=== PATIENT | male | born 1995 | race Two or more races ===

== ENCOUNTER 2016-09-10 16:55 | Emergency (ER) | payer BC ==
[2016-09-10 17:15] VITALS: BP 106/53; PULSE 62; RESP 18; TEMP 98.4; O2SAT 95
--- NOTE | 2016-09-10 17:42 | EDPHY ---
H & P Time Seen by Provider: 09/10/16 17:27 HPI/ROS: CHIEF COMPLAINT: Pain and swelling in the penis HISTORY OF PRESENT ILLNESS: Symptoms started yesterday morning continued today. At least for 36 hours. Swelling of the shaft of the penis without urinary symptoms or ulcers or fever or chills. No testicular symptoms. Denies erection or trauma. REVIEW OF SYSTEMS: No difficulty urinating. PAST MEDICAL HISTORY: Negative, no diabetes. Social history: No sexual trauma. General Appearance: Alert and conversant, cooperative. Normal testicles without swelling or tenderness. Vertical lie. Normal glans. Shaft of the penis is soft to palpation but is swollen and has 2 firm nodules in the mid shaft under hair follicle. No lymphangitis. No crepitus. Emergency Department course/MDM: Patient is supposed to leave town at 10:00 a.m. tomorrow to go to [place] for a birthday democrat. He is warned of the risks of failing to follow up with Urology including but not limited to permanent damage or loss of his penis, sepsis, worsening infection, sexual dysfunction. He is warned that follow-up with Urology tomorrow is mandatory. Most likely infection of the soft tissue and skin of the glans of the penis. He does not look septic or toxic. His penis is still flexible, no priapism. Not erect. Oral Bactrim and Keflex. Urine dip negative for glucose. Discussed case in detail with Dr. Dominguez at 9:08 p.m.,will see in f/u 24 hours if patient contacts him tomorrow. Smoking Status: Former smoker Constitutional: Initial Vital Signs Temperature (C) 36.9 C 09/10/16 17:11 Heart Rate 62 09/10/16 17:11 Respiratory Rate 18 09/10/16 17:11 Blood Pressure 106/53 L 09/10/16 17:11 O2 Sat (%) 95 09/10/16 17:11 O2 Delivery Mode Room Air Allergies/Adverse Reactions: No Known Allergies Allergy (Unverified 03/14/16 22:49) Home Medications: Medication Instructions Recorded Cephalexin [Keflex] 500 mg PO QID #40 cap 09/10/16 Sulfamethox/Tmp 800/160 mg 1 tab PO BID@1000,2200 #20 tab 09/10/16 [Bactrim Ds] MDM/Departure - MDM Medications Given: Discontinued Medications Cephalexin HCl (Keflex) 500 mg PO EDNOW ONE PRN Reason: Protocol Stop: 09/10/16 17:44 Last Admin: 09/10/16 17:46 Dose: 500 mg Trimethoprim/Sulfamethoxazole (Bactrim Ds) 1 ea PO EDNOW ONE PRN Reason: Protocol Stop: 09/10/16 17:44 Last Admin: 09/10/16 17:46 Dose: 1 ea - Depart Disposition: Home, Routine, Self-Care Clinical Impression: Cellulitis of shaft of penis Condition: Good Instructions: Cellulitis (ED) Stand Alone Forms: Airline Excuse Prescriptions: Cephalexin [Keflex] 500 mg PO QID #40 cap Sulfamethox/Tmp 800/160 mg [Bactrim Ds] 1 tab PO BID@1000,2200 #20 tab Referrals: Elvin Dominguez MD [Medical Doctor] - 1 day without fail (See this doctor or urologist at [facility] in [place] tomorrow morning without fail.)
[2016-09-10] MEDS ORDERED: CEPHALEXIN 500 MG CAP PO ONE (17:43)
[2016-09-10] MEDS ORDERED: SULFAMETHOX/TMP 800/160 MG 1 TAB PO ONE (17:43)
== END 2016-09-10 18:10 | disposition home or self-care (01) ==
DX: N48.22 Cellulitis of corpus cavernosum and penis (principal); Z87.891 Personal history of nicotine dependence

== ENCOUNTER 2018-07-03 00:24 | Inpatient (IN) | payer BC ==
[~2018-07-03 00:24] MED LIST: NS 1,000 ML IV ONE
--- NOTE | 2018-07-03 00:33 | EDPHY ---
H & P Time Seen by Provider: 07/03/18 00:33 HPI/ROS: HPI CHIEF COMPLAINT: Self-inflicted left wrist laceration. Full-trauma activation. HISTORY OF PRESENT ILLNESS: 22-year-old male, self-inflicted laceration left wrist. Palmar side. He self-inflicted this with a razor blade. He arrives to the emergency room by EMS tourniquet in place placed by EMS at 12: 05 a.m.. I did immediately see him we took down the tourniquet and examined his left wrist and hand. He has a deep self-inflicted wound to the left hand. It goes through all the left wrist tendons, and most likely clips his left ulnar artery. He does have sensation. He has good cap refill. He has decreased function of his left digits with flexion. He cannot fully flex his left 5th digit, 4th, 3rd, 2nd. Does have a good radial pulse. This was activated as a full trauma alert once arriving to the emergency room due to the limb injury, arterial bleeding. Upon arrival to the emergency room the patient had an IV established, blood sent , IV Ancef given, tetanus shot updated. Past Medical History: Denies medical history Past Surgical History: Denies surgical history Social History: Alcohol this evening. Family History: Noncontributory ROS REVIEW OF SYSTEMS: 10 Systems were reviewed and negative with the exception of the elements mentioned in the history of present illness. Exam Constitutional triage nursing summary reviewed, vital signs reviewed, awake/ alert. Eyes normal conjunctivae and sclera, EOMI, PERRLA. HENT normal inspection, atraumatic, moist mucus membranes, no epistaxis, neck supple/ no meningismus, no raccoon eyes. Respiratory clear to auscultation bilaterally, normal breath sounds, no respiratory distress, no wheezing. Cardiovascular rate normal, regular rhythm, no murmur, no edema, distal pulses normal. Gastrointestinal soft, non-tender, no rebound, no guarding, normal bowel sounds, no distension, no pulsatile mass. Genitourinary no CVA tenderness. Musculoskeletal left upper extremity: Patient has good radial pulse. Good cap refill to all digits. He has obvious large deep left wrist laceration palmar side. It it goes through all of his flexor tendons. And clips his ulnar artery. He does have weak flexion of his digits. no midline vertebral tenderness, full range of motion, no calf swelling, no tenderness of extremities, no meningismus, good pulses, neurovascularly intact. Skin pink, warm, & dry, no rash, skin atraumatic. Neurologic awake, alert and oriented x 3, AAOx3, moves all 4 extremities equally, motor intact, sensory intact, CN II-XII intact, normal cerebellar, normal vision, normal speech. Psychiatric normal mood/affect. Heme/Lymph/Immune no lymphadenopathy. Differential Diagnosis: Includes but is not limited to in a particular order self-inflicted laceration, soft tissue injury, tendon laceration, ulnar artery injury Medical Decision Making: Patient was activated as a full trauma alert. Dr. Calabrese saw and evaluated the patient. Dr. Conway was consulted given the patient has a limb injury hand wrist injury. Re-evaluation: Patient's tetanus shot has been updated. Patient given Ancef. X-ray performed. Blood work sent. No other injury on head to toe trauma exam. Patient placed on M1 hold due to self-inflicted deep left wrist laceration. Dr. Conway to consult take to the OR for repair. M1 hold placed by myself 1:06 a.m.. Reason for M1 hold self-inflicted deep left wrist laceration. 0117: Dr. Conway at bedside, examining. Will take to OR. Source: Patient, EMS - Medical/Surgical History Hx Asthma: No Hx Chronic Respiratory Disease: No Hx Diabetes: No Hx Cardiac Disease: No Hx Renal Disease: No Hx Cirrhosis: No Hx Alcoholism: No Hx HIV/AIDS: No Hx Splenectomy or Spleen Trauma: No Other PMH: None - Social History Smoking Status: Former smoker Constitutional: Initial Vital Signs Temperature (C) 36.9 C 07/03/18 00:29 Heart Rate 90 07/03/18 00:29 Respiratory Rate 20 07/03/18 00:29 Blood Pressure 125/71 H 07/03/18 00:29 O2 Sat (%) 100 07/03/18 00:29 O2 Delivery Mode Nasal Cannula O2 (L/minute) 4 Allergies/Adverse Reactions: No Known Allergies Allergy (Unverified 07/03/18 00:26) Home Medications: Medication Instructions Recorded Hydrocodone/APAP 5/325 [Terra Bella 1 - 2 tab PO Q4HRS PRN #14 tab 07/04/18 5/325 (*)] Medical Decision Making - Data Points Laboratory Results: Laboratory Results 07/03/18 00:45 07/03/18 00:15 Medications Given: Discontinued Medications Bupivacaine HCl (Sensorcaine 0.5% Vial) Confirm Administered Dose 30 ml .ROUTE .STK-MED ONE Stop: 07/03/18 01:41 Last Admin: 07/03/18 02:57 Dose: 30 ml Diphtheria/Tetanus/Acell Pertussis (Boostrix) 0.5 ml IM .ONCE ONE Stop: 07/03/18 00:49 Last Admin: 07/03/18 01:13 Dose: 0.5 ml Fentanyl (Sublimaze) 50 mcg IVP EDNOW ONE Stop: 07/03/18 00:59 Last Admin: 07/03/18 00:58 Dose: 50 mcg Cefazolin Sodium 3 gm/ (Dextrose) 100 mls @ 200 mls/hr IV EDNOW ONE PRN Reason: Protocol Stop: 07/03/18 01:15 Last Admin: 07/03/18 01:11 Dose: Not Given Cefazolin Sodium/Dextrose (Ancef 1 Gm (Premix)) 50 mls @ 200 mls/hr IV EDNOW ONE PRN Reason: Protocol Stop: 07/03/18 01:08 Last Admin: 07/03/18 00:58 Dose: 50 mls Sodium Chloride (Ns) 1,000 mls @ 0 mls/hr IV ONCE ONE; Wide Open PRN Reason: Protocol Stop: 07/03/18 00:11 Last Admin: 07/03/18 00:16 Dose: 1,000 mls Ondansetron HCl (Zofran) 4 mg IVP EDNOW ONE Stop: 07/03/18 00:47 Last Admin: 07/03/18 00:46 Dose: 4 mg Oxycodone/Acetaminophen (Percocet 5/325) 1 - 2 tab PO Q4HRS PRN PRN Reason: Pain, Severe Able to Take PO Stop: 07/13/18 03:37 Last Admin: 07/03/18 16:51 Dose: 2 tab Pantoprazole Sodium (Protonix) 40 mg IVP EDNOW ONE Stop: 07/03/18 00:47 Last Admin: 07/03/18 00:46 Dose: 40 mg Departure - Departure Disposition: [facility] Clinical Impression: Suicidal ideation Laceration of left wrist Qualifiers: Encounter type: initial encounter Qualified Code(s): S61.512A - Laceration without foreign body of left wrist, initial encounter
[2018-07-03] MEDS ORDERED: ONDANSETRON 4 MG/2 ML VIAL IVP ONE (00:46)
[2018-07-03] MEDS ORDERED: PANTOPRAZOLE SODIUM 40 MG VIAL IVP ONE (00:46)
[2018-07-03] MEDS ORDERED: ceFAZolin 3 GM in D5W 100 ML IV ONE (00:46)
[2018-07-03] MEDS ORDERED: TDAP ADULT 0.5 ML INJ (BOOSTRIX) IM ONE (00:48)
[2018-07-03] MEDS ORDERED: CEFAZOLIN 1 GM/DEXTROSE/50 ML BAG IV ONE (00:48)
[2018-07-03 00:57] LABS: PLATELET COUNT 224 10^3/uL (150-400)
[2018-07-03] MEDS ORDERED: fentaNYL 100 MCG/2 ML INJ ONE ×2 (00:57→03:06)
[2018-07-03] MEDS ORDERED: fentaNYL 100 MCG/2 ML INJ IVP ONE (00:58)
[2018-07-03 01:08] LABS: INR 1.03 (0.83-1.16); PROTIME(PATIENT) 13.7 SEC (12.0-15.0)
[2018-07-03] MEDS ORDERED: PROPOFOL/EMULSION 500 MG/50 ML BOTTLE IV ONE ×2 (01:35→02:01)
[2018-07-03] MEDS ORDERED: fentaNYL 250 MCG/5 ML INJ ONE (01:35)
[2018-07-03] MEDS ORDERED: BUPIVACAINE 0.5% 30 ML SDV ONE (01:40)
[2018-07-03] MEDS ORDERED: GLYCOPYRROLATE 0.2 MG/1 ML VIAL ONE ×3 (02:00→03:36)
[2018-07-03] MEDS ORDERED: KETOROLAC 30 MG/1 ML SDV ONE (02:09)
[2018-07-03] MEDS ORDERED: ROCURONIUM 50 MG/5 ML VIAL ONE (02:09)
[2018-07-03] MEDS ORDERED: DEXAMETHASONE 4 MG/ML VIAL ONE (02:09)
[2018-07-03] MEDS ORDERED: ONDANSETRON 4 MG/2 ML VIAL ONE (02:09)
--- NOTE | 2018-07-03 02:22 | PDANEPAE ---
ANE History of Present Illness Left wrist laceration exploration probable artery, tendon repair ANE Past Medical History - Cardiovascular History Hx Hypertension: No Hx Arrhythmias: No Hx Chest Pain: No Hx Coronary Artery / Peripheral Vascular Disease: No Hx CHF / Valvular Disease: No Hx Palpitations: No - Pulmonary History Hx COPD: No Hx Asthma/Reactive Airway Disease: No Hx Recent Upper Respiratory Infection: No Hx Oxygen in Use at Home: No Hx Sleep Apnea: No - Endocrine History Hx Diabetes: No Hypothyroid: No Hyperthyroid: No Obesity: no - Renal History Hx Renal Disorders: No - Liver History Hx Hepatic Disorders: No - Neurological & Psychiatric Hx Hx Neurological and Psychiatric Disorders: No - Cancer History Hx Cancer: No - Congenital Disorder History Hx Congenital Disorders: No - GI History GERD: no Hx Gastrointestinal Disorders: No - Chronic Pain History Chronic Pain: No ANE Review of Systems Review of systems is: negative Review of Systems: - Exercise capacity METS (RN): 5 METS ANE Patient History - Allergies Allergies/Adverse Reactions: No Known Allergies Allergy (Unverified 07/03/18 00:26) - Anes Hx Anes Hx: no prior problems - Smoking Hx Smoking Status: Current some day smoker Marijuana use: Yes - Alcohol Use Alcohol Use: Other - Family Anes Hx Family Anes Hx: none ANE Labs/Vital Signs - Labs Result Diagrams: 07/03/18 00:45 07/03/18 00:15 - Vital Signs Blood Pressure: 125/71 Heart Rate: 90 Respiratory Rate: 20 O2 Sat (%): 100 Height: 180.34 cm Weight: 61.235 kg ANE Physical Exam - Airway Neck exam: FROM Mallampati Score: Class 1 Mouth exam: normal dental/mouth exam - Pulmonary Pulmonary: no respiratory distress, no rales or rhonchi - Cardiovascular Cardiovascular: regular rate and rhythym, no murmur, rub, or gallop - ASA Status ASA Status: I, E ANE Anesthesia Plan Anesthesia Plan: general endotracheal anesthesia
[2018-07-03] MEDS ORDERED: NEOSTIGMINE METHYLSULFATE 5 MG/5 ML SYR ONE (03:36)
[2018-07-03] MEDS ORDERED: ONDANSETRON DISINTEGRATING 4 MG TAB PO PRN (03:38)
[2018-07-03] MEDS ORDERED: ONDANSETRON 4 MG/2 ML VIAL IVP PRN (03:38)
--- NOTE | 2018-07-03 03:38 | PDCONSULT ---
Distribution Systems Serviceperson Note: ORTHOPEDIC SURGERY CONSULT NOTE/H&P CHIEF COMPLAINT: Self-inflicted left wrist laceration. Full-trauma activation. ASSESSMENT/PLAN: Dr Conway to perform repair of left wrist tendon, nerve, and artery as soon as possible Admit with hospital service Psych consult needed Surgical consent with risks/benefits was explained to and signed by patient. HISTORY OF PRESENT ILLNESS: 22-year-old male, self-inflicted laceration left wrist. Palmar side. He self-inflicted this with a razor blade. He arrives to the emergency room by EMS tourniquet in place placed by EMS at 12: 05 a.m.. ER saw him and took down the tourniquet and examined his left wrist and hand. He has a deep self-inflicted wound to the left hand. It goes through all the left wrist tendons, and most likely clips his left ulnar artery. He has good cap refill. He has decreased function of his left digits with flexion. He cannot fully flex his left 5th digit, 4th, 3rd, 2nd. Does have a good radial pulse. This was activated as a full trauma alert once arriving to the emergency room due to the limb injury, arterial bleeding. Upon arrival to the emergency room the patient had an IV established, blood sent , IV Ancef given, tetanus shot updated. Past Medical History: Denies medical history Past Surgical History: Denies surgical history Social History: Alcohol this evening. Family History: Noncontributory ROS REVIEW OF SYSTEMS: 10 Systems were reviewed and negative with the exception of the elements mentioned in the history of present illness. Exam Constitutional triage nursing summary reviewed, vital signs reviewed, awake/ alert. Eyes normal conjunctivae and sclera, EOMI, PERRLA. HENT normal inspection, atraumatic, moist mucus membranes, no epistaxis, neck supple/ no meningismus, no raccoon eyes. Respiratory clear to auscultation bilaterally, normal breath sounds, no respiratory distress, no wheezing. Cardiovascular rate normal, regular rhythm, no murmur, no edema, distal pulses normal. Gastrointestinal soft, non-tender, no rebound, no guarding, normal bowel sounds, no distension, no pulsatile mass. Genitourinary no CVA tenderness. Musculoskeletal left upper extremity: Patient has good radial pulse. Good cap refill to all digits. He has obvious large deep left wrist laceration palmar side. It it goes through all of his flexor tendons. And clips his ulnar artery. He does have weak flexion of his digits. no midline vertebral tenderness, full range of motion, no calf swelling, no tenderness of extremities, no meningismus, good pulses, neurovascularly intact. Skin pink, warm, & dry, no rash, skin atraumatic. Neurologic awake, alert and oriented x 3, AAOx3, moves all 4 extremities equally, motor intact, sensory intact, CN II-XII intact, normal cerebellar, normal vision, normal speech. Psychiatric normal mood/affect. Heme/Lymph/Immune no lymphadenopathy. Patient seen by Chapo SHORT and Dr. Conway (Orthopedic Surgery)
[2018-07-03] MEDS ORDERED: fentaNYL 100 MCG/2 ML INJ IVP PRN (04:03)
[2018-07-03] MEDS ORDERED: NALOXONE HCL 0.4 MG/ML INJ IVP PRN (04:03)
[2018-07-03] MEDS ORDERED: HYDROCODONE/APAP 5/325 TAB PO PRN (04:03)
[2018-07-03] MEDS ORDERED: HYDROmorphONE/DILAUDID 1 MG/ML INJ IVP PRN (04:03)
--- NOTE | 2018-07-03 04:28 | POSTANESTH ---
Post Anesthetic Evaluation Cardiovascular Status: Normal, Stable Respiratory Status: Normal, Stable Level of Consciousness/Mental Status: Can Participate in Eval Pain Control: Adequate, Prn Tx Ordered Nausea/Vomiting Control: Adequate, Prn Tx Ordered Complications Possibly Related to Anesthesia: None Noted
--- NOTE | 2018-07-03 09:03 | GCON ---
TRAUMA CONSULTATION DIAGNOSIS: Transverse laceration left wrist (nondominant arm). HISTORY OF PRESENT ILLNESS: The patient states this was not a suicidal gesture , but he was just trying to "make a point." As soon as he incised the tissue with the razor blade, began bleeding profusely. He placed a towel over it and had his friends call 911. He was transported to [facility]. This was activated when he arrived. Dr. Elizabeth initially saw the patient. I came promptly to see him, but arrived I believe about 5 minutes after the patient's arrival. At that point, he is awake and alert. His airway is clear, and unencumbered. His breathing is unrestricted. Without a blood pressure cuff, without tourniquet up on his left arm, there is a least 1 small bleeder in the wrist. Before the tourniquet was reinflated, quick review of his hand shows he has good capillary refill. He has difficulty sorting out sensation in his hand. He can feel, but is not the same as normal on the palmar surface of his fingers. He extends very fingers, but has difficulty flexing them. The tourniquet is reapplied. His second IV is being sought at this point. SOCIAL HISTORY: He states he does not smoke. He has had approximately 4 drinks tonight and he has about that amount of alcohol once a weekend. ALLERGIES: He has no known drug allergies. MEDICATION: He denies taking medications beyond NyQuil or Benadryl. PAST SURGICAL HISTORY: He has had no prior surgery, except for a mixed appendicitis, which was treated with percutaneous drainage of the abscess. REVIEW OF SYSTEMS: No history of rheumatic fever, tuberculosis, hepatitis, of transfusions. Review of systems Is otherwise quite negative. PHYSICAL EXAMINATION: GENERAL: He is awake, alert, oriented. GCS is 15. He is not obviously inebriated. HEENT: His skull is normocephalic and atraumatic. There are no raccoon eyes or mora sign. He has normal dental occlusion. NECK: Supple, nontender. There are no carotid bruits. LYMPHATIC: There is no cervical, supraclavicular, axillary, or inguinal lymphadenopathy. CHEST: Stable to AP and lateral compression. LUNGS: Clear to auscultation. CARDIAC: Shows S1, S2 to be normal, with normal split of S2 without murmurs, rubs, or gallops. ABDOMEN: Soft, nontender. MUSCULOSKELETAL: Pelvis stable to AP and lateral compression. The lower extremities in the right upper extremity are unremarkable. Left upper extremity has a transverse incision approximately a fingerbreadth and a half proximal to the wrist crease. There were several cut tendons seen in the wound. Dr. Conway from Hand surgery has been consulted. Patient received a g of Ancef, as well as a tetanus shot. He received Zofran. He has received Protonix. IMPRESSION: Self-inflicted wound. Rational behind self-inflicted wound remains unclear. Laboratories are pending. I expect he will be taken to the operating room for tendon repair. I suspect there has been some neural injury and attempt may be made to repair that as well. /[id number]/MODL MTDD
[2018-07-03] MEDS: OXYCODONE/APAP 5/325 TAB PO PRN ×2 (09:04→16:51)
--- NOTE | 2018-07-03 09:34 | ASMTCMCOM ---
CM Note CM Note Notes: 22yo male admitted for Self inflicted- L Wrist laceration. He is a student and his mother resides in [place]. Patient to have tendon, nerve and artery repair. Psych to eval when medically clear. CM to follow. Date Signed: 07/03/2018 09:33 AM Electronically Signed By:Vicky Castillo LCSW
[2018-07-03] MEDS ORDERED: ACETAMINOPHEN 325 MG TAB PO PRN (11:44)
--- NOTE | 2018-07-03 13:34 | GOP ---
DATE OF OPERATION: 07/03/2018 SURGEON: Jose Conway MD ANESTHESIA: General. PREOPERATIVE DIAGNOSIS: Left wrist complex wrist laceration with the followin. Ulnar artery laceration. 2. Flexor carpi ulnaris tendon laceration. 3. Ulnar nerve partial laceration. 4. Median nerve minimal partial laceration. POSTOPERATIVE DIAGNOSIS: Left wrist complex wrist laceration with the followin. Ulnar artery laceration. 2. Flexor carpi ulnaris tendon laceration. 3. Ulnar nerve partial laceration. 4. Median nerve minimal partial laceration. PROCEDURE PERFORMED: Repair of complex left wrist laceration with repair of ulnar nerve, repair ulna r artery, repair flexor carpi ulnaris. FINDINGS: DESCRIPTION OF PROCEDURE: Patient was taken to the operating room, administered general anesthesia, placed in supine position. The left upper extremity is prepped and draped in normal sterile fashion. Esmarch exsanguination was performed, followed by elevation of cuff to 225 mmHg pressure . The volar laceration was explored. The flexor carpi ulnaris tendons ends were isolated. The prox imal tendon had retracted. This was brought distally and secured with a David wire. The ulnar arter y was completely transected. The ulnar nerve was partially transected. The median nerve was partial ly transected, but just through the epineural sheath with minimal axonal involvement. The median ner ve was not felt to be repairable. The palmaris longus tendon was completely transected. The tendons were explored and the flexor digitorum profundus and flexor digitorum superficialis tendons were fel t to be intact throughout. The flexor pollicis longus tendon was also felt to be intact. Our attention was directed to the flexor carpi ulnaris tendon. This was repaired with a 4-0 core Eth ibond suture. It was then repaired with a circumferential 4-0 Prolene suture. The ulnar nerve was t hen repaired using a series of interrupted 8-0 nylon sutures in the epineurium. This nerve had been transected approximately through 30% of its diameter. The ulnar artery was then dissected out. This was repaired using an 8 0 running nylon suture. Two subsequent simple sutures were used to further close areas of leakage. Thorough lavage performed with normal saline. The palmaris longus tendon wa s left unrepaired. The median nerve was not felt to be significantly injured enough to attempt to pl anant any epineurial sutures. The subcutaneous tissues were then closed with 4-0 Vicryl suture, follow ed by closure of the dermis with 4-0 nylon. A sterile compression dressing applied, followed by a do rsal splint. The patient tolerated procedure well and was transferred back to recovery in stable con dition. No operative complications. COMPLICATIONS: None. /[id number]/MODL
--- NOTE | 2018-07-03 15:44 | PDMN ---
Medical Necessity Medical necessity: [facility] Musculoskeletal sgy. PT present to ED with self inflicted complex L wrist laceration OP: emergent repair of complex L wrist laceration with repair of ulnar nerve, repair ulnar artery, repair flexor carpi ulanaris, M1 hold , psych consult pend.,
--- NOTE | 2018-07-03 16:32 | ASMTTCLDSP ---
[facility] Discharge Disposition Disposition: Answers: Admit Discharge Concerns/Recommendations: Notes: In consultation with [facility] ICU physician, YOVANI Torres and [facility] on-call psychiatrist, Dioni Fowler MD, both concurred that pt appears to meet 27-65 criteria requiring psychiatric hospitalization as the patient appears to be an imminent risk of harm to self due to a mental illness condition. The patient was given the [facility] prohibited belongings list while in the ED. Was patient given the Answers: Yes Inpatient Behavioral Health Prohibited Belongings List while in the ED? For inpatient Dioni Fowler MD admission, the following psychiatrist agreed to accept patient for admission to Behavioral [facility] ([facility]): Type of Hold: Answers: M1/72-hour Hold Hold initiated by: Answers: ED Physician Date Signed: 07/03/2018 04:32 PM Electronically Signed By:Brea Hough
--- NOTE | 2018-07-03 16:44 | PDCONSULT ---
Safety Aide Note: ORTHOPEDIC SURGERY CONSULT NOTE UPDATE Mateo Ching underwent a left wrist artery, nerve, and tendon repair this AM 07/[address] Conway due to a self inflicted laceration to the left wrist. Surgery went very well. He was referred to [facility] and will be transferred tonight. We appreciate the consult and help from all medical teams in providing Mateo with the best care possible. Any further questions and concerns for us, please dont hesitate to call or reach out to our clinic. We will plan on see Mr. Ching in about - at our clinic for re-evaluation and suture removal. Please have patient call clinic to confirm date/time of post-op. Chapo Denny PA-C for Dr. Jose Conway (Orthopedic Surgery) [facility]
[2018-07-03 16:51] VITALS: BP 105/53
--- NOTE | 2018-07-03 16:56 | ASMTLACE ---
RESHMA Length of stay for Answers: Less than 1 day current admission Acuity / Level of Answers: Yes Care: Did the patient have an inpatient admission? Comorbidities - select Answers: Other Notes: self inflicted wrist all that apply wound # of Emergency department Answers: 1-2 visits in the last 6 months Social determinants Answers: History of substance abuse (ETOH, street drugs, prescription drugs, etc.) Mental health diagnosis (anxiety, depression, pers onality disorders, etc.) Score: 11 Date Signed: 07/03/2018 04:56 PM Electronically Signed By:Vicky Castillo LCSW
--- NOTE | 2018-07-03 16:59 | ASDISCHSUM ---
Discharge Information Plan Status:Psych Placement/Petitioned Medically Cleared to Leave:07/02/2018 Discharge Date:07/02/2018 CM D/C Disposition:[facility] ADT D/C Disposition:[facility] Projected Discharge Date:07/03/2018 07:00 PM Transportation at D/C:ALS/BLS Discharge Delay Reason: Follow-Up Date:07/03/2018 07:00 PM Discharge Slot:3 - 18:01 pm - 12:00 am Final Diagnosis:Self inflicted- L Wrist laceration Placement Information Patient Contact Information Contact Name:TRISHA Relationship:Mother Address:[address] Work Phone: City:[place] Alternate Phone: State/Zip Code:[place] [address] Email: Financial Information Financial Class:BCOP Primary Plan Desc: OUT OF STATE PPO Primary Plan Number:[id number] Secondary Plan Desc: OUT OF STATE INDEMNITY Secondary Plan Number:[id number] Assessment Information [facility] CM Progress Note CM Note CM Note Notes: 22yo male admitted for Self inflicted- L Wrist laceration. 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 Patient to have tendon, nerve and artery repair. Psych to eval when medically clear. CM to follow. Date Signed: 07/03/2018 09:33 AM Electronically Signed By:Vicky Castillo LCSW LACE LACE Length of stay for Answers: Less than 1 day current admission Acuity / Level of Answers: Yes Care: Did the patient have an inpatient admission? Comorbidities - select Answers: Other Notes: self inflicted wrist all that apply wound # of Emergency department Answers: 1-2 visits in the last 6 months Social determinants Answers: History of substance abuse (ETOH, street drugs, prescription drugs, etc.) Mental health diagnosis (anxiety, depression, pers onality disorders, etc.) Score: 11 Date Signed: 07/03/2018 04:56 PM Electronically Signed By:Vicky Castillo LCSW TLC Discharge Disposition TLC Discharge Disposition Disposition: Answers: Admit Discharge Concerns/Recommendations: Notes: In consultation with [facility] ICU physician, YOVANI Torres and [facility] on-call psychiatrist, Dioni Fowler MD, both concurred that pt appears to meet 27-65 criteria requiring psychiatric hospitalization as the patient appears to be an imminent risk of harm to self due to a mental illness condition. The patient was given the 3N prohibited belongings list while in the ED. Was patient given the Answers: Yes Inpatient [facility] Prohibited Belongings List while in the ED? For inpatient Dioni Fowler MD admission, the following psychiatrist agreed to accept patient for admission to [facility] ([facility]): Type of Hold: Answers: M1/72-hour Hold Hold initiated by: Answers: ED Physician Date Signed: 07/03/2018 04:32 PM Electronically Signed By:Brea Hough Case Management Discharge Plan Note Case Management Discharge Discharge Order Complete? Answers: Yes Patient to Obtain Answers: Other Notes: [facility] Behavior [facility] Medications Transportation Arranged Answers: STEPHANIE Stretcher Transport will Pick (Date 07/03/2018 06:30 PM & Time) MARCIAL Complete Answers: Yes Case Management Transport Answers: Yes Form Complete Faxed Final Orders Answers: Yes Discharge Comments Notes: Patient to be admitted to [facility]. [facility] to transport at 6:30. Date Signed: 07/03/2018 04:58 PM Electronically Signed By:Vicky Castillo LCSW Intervention Information
--- NOTE | 2018-07-03 16:59 | ASMTDCNOTE ---
Case Management Discharge Discharge Order Complete? Answers: Yes Patient to Obtain Answers: Other Notes: [facility] Behavior [facility] Medications Transportation Arranged Answers: [facility] Transport will Pick (Date 07/03/2018 06:30 PM & Time) EMTALA Complete Answers: Yes Case Management Transport Answers: Yes Form Complete Faxed Final Orders Answers: Yes Discharge Comments Notes: Patient to be admitted to [facility]. [facility] to transport at 6:30. Date Signed: 07/03/2018 04:58 PM Electronically Signed By:Vicky Castillo LCSW
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
== END 2018-07-03 19:10 | DRG 908 ==
LOC: EDUNIT# → EEVIPCON 01:16 → F2N 03:38
PROVIDERS: ADMIT Orthopaedic Surgery Sports Medicine; ATTEND Orthopaedic Surgery Sports Medicine
PROC: 0LQ60ZZ Repair Left Lower Arm and Wrist Tendon, Open Approach (ICD-10-PCS; principal; 2018-07-03 01:40)
PROC: 03QA0ZZ Repair Left Ulnar Artery, Open Approach (ICD-10-PCS; principal; 2018-07-03 01:40)
PROC: 01Q40ZZ Repair Ulnar Nerve, Open Approach (ICD-10-PCS; principal; 2018-07-03 01:40)
DX: S65.012A Laceration of ulnar artery at wrist and hand level of left arm, initial encounter (principal); D62 Acute posthemorrhagic anemia; S56.222A Laceration of other flexor muscle, fascia and tendon at forearm level, left arm, initial encounter; S64.02XA Injury of ulnar nerve at wrist and hand level of left arm, initial encounter; X78.8XXA Intentional self-harm by other sharp object, initial encounter; Y92.019 Unspecified place in single-family (private) house as the place of occurrence of the external cause; Z72.0 Tobacco use
CPT/HCPCS: 96374; J0690; J1100; J1885; J2405; J2704; J2710; J3010

== ENCOUNTER 2018-07-03 19:30 | Inpatient (IN) | payer BC ==
[2018-07-03] MEDS ORDERED: ACETAMINOPHEN 325 MG TAB PO PRN (20:49)
[2018-07-03] MEDS ORDERED: OLANZapine DISINTEGR 5 MG TAB PO PRN (20:49)
[2018-07-03] MEDS ORDERED: MAGNESIUM HYDROXIDE 30 ML UDCUP PO PRN (20:49)
[2018-07-03] MEDS ORDERED: MAG HYDROX/AL HYDROX/SIMETH 30 ML UDCUP PO PRN (20:49)
[2018-07-03] MEDS ORDERED: LORazepam 0.5 MG TAB PO PRN (20:49)
[2018-07-03] MEDS ORDERED: NICOTINE POLACRILEX 2 MG GUM B PRN (20:49)
[2018-07-03] MEDS ORDERED: OXYCODONE/APAP 5/325 TAB PO PRN (20:55)
[2018-07-03] MEDS ORDERED: MELATONIN 3 MG TAB PO PRN (20:56)
[2018-07-03] MEDS ORDERED: IBUPROFEN 600 MG TAB PO PRN (20:56)
[2018-07-03] MEDS: HYDROCODONE/APAP 5/325 TAB PO PRN (21:42)
[2018-07-04 07:06] VITALS: BP 107/69
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
[2018-07-04] MEDS: HYDROCODONE/APAP 5/325 TAB PO PRN ×2 (09:28→13:47)
--- NOTE | 2018-07-04 12:00 | ASMTCMCOM ---
CM Note CM Note Notes: CC waiting to hear back from [place] [employer] on any request to hold client or contact them when discharged, etc. Waiting to hear back from [facility].* Date Signed: 07/04/2018 11:59 AM Electronically Signed By:Aaron Luna
--- NOTE | 2018-07-04 12:01 | ASMTBHDC ---
Notes Note: Notes: CC was able to confirm with out-patient services follow up appts: Follow up with: [facility] [place]: [address] [address] Case Managment Appt: July 06 (07/06/18) @ 11:30am with DOMO Noe. Date Signed: 07/04/2018 12:01 PM Electronically Signed By:Aaron Luna
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
== END 2018-07-04 14:43 | disposition home or self-care (01) | DRG 880 ==
LOC: BBEH 19:30
PROVIDERS: ADMIT Psychiatry & Neurology Psychiatry; ATTEND Psychiatry & Neurology Psychiatry
DX: R45.851 Suicidal ideations (principal); D62 Acute posthemorrhagic anemia; F12.90 Cannabis use, unspecified, uncomplicated; Z72.89 Other problems related to lifestyle; S65 Injury of blood vessels at wrist and hand level; S56.222D Laceration of other flexor muscle, fascia and tendon at forearm level, left arm, subsequent encounter; S64.02XD Injury of ulnar nerve at wrist and hand level of left arm, subsequent encounter; X78.8XXD Intentional self-harm by other sharp object, subsequent encounter; Y92.019 Unspecified place in single-family (private) house as the place of occurrence of the external cause